=== PATIENT | female | born 1995 | race Two or more races ===

== ENCOUNTER 2020-03-17 01:20 | Emergency (ER) | payer SELFPAY ==
[~2020-03-17] VITALS: Ht 170.2 cm; Wt 90.7 kg
--- NOTE | 2020-03-17 01:20 | NUR ---
PT ESCORTED TO [facility] WITH STEADY GAIT.
--- NOTE | 2020-03-17 01:29 | NUR ---
PT REFUSED TO HAVE VITAL SIGNS TAKEN. ERMD ASSESSING PT.
--- NOTE | 2020-03-17 01:30 | NUR ---
PT REFUSED TO PARTICIPATE IN ASSESSMENT. PT YELLING, "FUCK YOU ALL I'M REFUSING, DON;T TOUCH ME OR ILL SHOOT YOUR ASSES."
--- NOTE | 2020-03-17 01:31 | NUR ---
ERMD AT [facility] ASSESSING PT. HR: [phone] APICAL UPON AUSCULTAION.
--- NOTE | 2020-03-17 01:39 | NUR ---
PATIENT BIB [employer]. PATIENT EXAMINED BY DR. SHAW. PATIENT MEDICALLY CLEARED AND RELEASED IN CUSTODY IN STABLE CONDITION. ORIGINAL PRE-BOOK FORM GIVEN TO OFFICER [facility] #[id number]. NO NURSING INTERVENTION NEEDED.
== END 2020-03-17 01:39 ==
LOC: MED 01:20
DX: F31.9 Bipolar disorder, unspecified (principal); F17.210 Nicotine dependence, cigarettes, uncomplicated; Z02.89 Encounter for other administrative examinations
CPT/HCPCS: 99283